=== PATIENT | female | born 1970 | race American Indian/Alaskan Native ===

== ENCOUNTER 2021-01-09 16:43 | Emergency (ER) | payer BC ==
[2021-01-09 16:53] VITALS: BP 139/87
[2021-01-09] MEDS ORDERED: dexAMETHasone 20 MG/5 ML VIAL IM ONE (17:22)
[2021-01-09] MEDS ORDERED: FAMOTIDINE 20 MG TAB PO ONE (17:22)
--- NOTE | 2021-01-09 17:22 | Emergency Department Report ---
HPI - General Chief Complaint: Allergic Reaction PUI?: No Time Seen by Provider: 01/09/21 17:11 - HPI HPI: This is a 50-year-old female who presents to the ED complaining of tongue swelling and lower lip swelling that began earlier today. Patient states that she had a Yogi tea and noticed that her tongue got a little tingly and swelling. She denies difficulty swallowing or shortness of breath. Patient states she was still able to drink and eat after swelling. Patient denies any history of allergies ED Past Medical Hx - Past Medical History Previous Medical History?: No - Surgical History Past Surgical History?: Yes Hx Cholecystectomy: Yes Additional Surgical History: C SECTION - Social History Smoking Status: Never Smoker Substance Use Type: None - Medications Home Medications: Home Medications Medication Instructions Recorded Confirmed Last Taken Type Famotidine [Pepcid] 20 mg PO BID #10 tablet 01/09/21 Unknown Rx diphenhydrAMINE [Benadryl CAP] 50 mg PO QHS #30 capsule 01/09/21 Unknown Rx predniSONE [Deltasone] 20 mg PO QDAY #5 tab 01/09/21 Unknown Rx ED Review of Systems ROS: Stated complaint: ENLARGE TONGUE/TIGHTNESS IN THROAT Other details as noted in HPI Comment: All other systems reviewed and negative Physical Exam - Physical Exam Vital Signs: Vital Signs 01/09/21 16:51 Temperature 98.9 F Pulse Rate 76 Respiratory 18 Rate Blood Pressure 139/87 O2 Sat by Pulse 99 Oximetry Physical Exam: GENERAL: Alert and oriented x3, no apparent distress, Normal Gait, atraumatic. HEAD: Head is normocephalic and a-traumatic. EYES: Extra ocular muscles are intact. Pupils are equal, round, and reactive to light and accommodation. EARS: symetrical, atraumatic, non tender, ear canal clear and moderate cerumen, tympanic membrance non inflamed. gross auditory nml bilaterally. NOSE: Nose symetrical, Nontender,Nares appeared normal. MOUTH:Mouth is well hydrated and without lesions. Tonsils nonerythematous or swollen, Uvula midline, Tongue mildly swollen. Mucous membranes are moist. Posterior pharynx clear, no exudate or lesions. Patent airways. Mild lower lip swelling NECK: Supple. Non edematous, No carotid bruits. No lymphadenopathy or t hyromegaly. No C-spine tenderness LUNGS: Symetrical with respiration, No wheezing, no rales or crackles, CTAB. HEART: S1, S2 present, regular rate and rhythm without murmur, no rubs, no gallops. Non tender to palpation ABDOMEN: No organomegaly was noted,Positive bowel sounds, soft, and non- distended. . Nontender to palpation on all Quadrants, NO CVA tenderness. EXTREMITIES/MUSCULOSKELETAL: No cyanosis, clubbing, rash, lesions or edema. Full ROM bilaterally NEUROLOGIC: The patient is cooperative with no focal neurologic deficits. SKIN: Warm and dry, No lesions, No ulceration or induration present. ED Course Vital Signs 01/09/21 16:51 Temperature 98.9 F Pulse Rate 76 Respiratory 18 Rate Blood Pressure 139/87 O2 Sat by Pulse 99 Oximetry ED Medical Decision Making - Medical Decision Making 50-year-old female presents with mild allergic reaction to herbal supplements Patient had no respiratory distress during ED stay. Patient received steroids Pepcid. Discussed with patient she has any worsening or new symptoms she will return to the ED immediately. Vital signs are stable. Patient is in no acute distress. Discussed follow-up with primary care physician in 2 to 3 days. Critical care attestation.: If time is entered above; I have spent that time in minutes in the direct care of this critically ill patient, excluding procedure time. ED Disposition Clinical Impression: Allergic reaction, Lip swelling Disposition: -01 TO HOME OR SELFCARE Is pt being admited?: No Does the pt Need Aspirin: No Condition: Stable Instructions: Allergies, Adult, [id number] Additional Instructions: Make sure to follow up with the primary care physician as discussed. Take all your medications as you've been prescribed. If you have any worsening symptoms or develop new symptoms please return to ED immediately. Prescriptions: diphenhydrAMINE [Benadryl CAP] 50 mg PO QHS #30 capsule predniSONE [Deltasone] 20 mg PO QDAY #5 tab Famotidine [Pepcid] 20 mg PO BID #10 tablet Referrals: [facility] [Outside] - 3-5 Days [facility] [Outside] - 3-5 Days Forms: Work/School Release Form(ED) Time of Disposition: 18:47
== END 2021-01-09 19:07 | disposition home or self-care (01) ==
LOC: ED 16:43
DX: T78.40XA Allergy, unspecified, initial encounter (principal); R22.0 Localized swelling, mass and lump, head; Z90.49 Acquired absence of other specified parts of digestive tract; Z98.890 Other specified postprocedural states; Z79.899 Other long term (current) drug therapy; X58.XXXA Exposure to other specified factors, initial encounter
CPT/HCPCS: 96372; 99282; J1100